=== PATIENT | male | born 1975 | race Hispanic/Latino ===

== ENCOUNTER 2022-09-02 00:54 | Emergency (ER) | payer OTHER ==
[~2022-09-02] VITALS: Ht 170.2 cm; Wt 144.7 kg
[2022-09-02 01:23] LABS: BASOPHILS % (AUTO) 0.5 % (0.0-5.0); EOSINOPHILS % (AUTO) 1.4 % (0.0-8.0); HEMATOCRIT 48.3 % (42-54); LYMPHOCYTES % (AUTO) 19.7 % (21.0-51.0); MEAN CORPUSCULAR HEMOGLOBIN 28.4 pg (27.0-33.0); MEAN CORPUSCULAR HGB CONC 33.3 g/dL (32.0-36.0); MEAN CORPUSCULAR VOLUME 85.3 fL (79-99); MONOCYTES % (AUTO) 5.6 % (3.0-13.0); NEUTROPHILS % (AUTO) 72.1 % (40.0-77.0); PLATELET COUNT (AUTO) 330 K/uL (130-400); RED BLOOD CELL COUNT(AUTO) 5.66 MIL/uL (4.50-6.20); RED CELL DISTRIBUTION WIDTH 13.7 % (11.0-15.5); WHITE BLOOD COUNT (AUTO) 14.6 K/uL (4.8-10.8)
[2022-09-02 01:26] LABS: APPEARANCE,URINE CLEAR (CLEAR); BILIRUBIN,URINE NEGATIVE (NEGATIVE); COLOR,URINE YELLOW (YELLOW); GLUCOSE, URINE (UA) NEGATIVE (NEGATIVE); KETONES,URINE NEGATIVE (NEGATIVE); LEUKOCYTE ESTERASE ,URINE NEGATIVE Leu/uL (NEGATIVE); NITRATE,URINE NEGATIVE (NEGATIVE); OCCULT BLOOD,URINE NEGATIVE (NEGATIVE); PH,URINE 5.5 (5.0-8.0); PROTEIN,URINE 30 mg/dL (NEGATIVE); UROBILINOGEN,URINE 0.2 mg/dL (0.2-1.0)
[2022-09-02 01:29] LABS: MUCUS,URINE MOD LPF (None Seen); RBC,URINE 0-1 /HPF (0-1)
[2022-09-02 01:30] LABS: CREATININE 0.9 mg/dL (0.5-1.5)
[2022-09-02] MEDS ORDERED: ONDANSETRON 4MG INJ IVP ONE ×2 (01:30→05:00)
[2022-09-02] MEDS ORDERED: FAMOTIDINE 20MG VIAL IV ONE (01:30)
[2022-09-02 01:34] LABS: ALBUMIN 4.2 g/dL (3.5-5.0); TOTAL PROTEIN, SERUM 9.2 g/dL (6.0-8.3)
[2022-09-02 02:07] LABS: INR 0.96 (0.85-1.15); PROTHROMBIN TIME 10.5 SEC (9.6-11.6)
[2022-09-02] MEDS ORDERED: LIDOCAINE HCL 2% VISCOUS 15 ML UDCUP PO ONE (04:30)
[2022-09-02] MEDS ORDERED: KETOROLAC 15MG/ML VIAL (15MG/ML) IV ONE (04:30)
[2022-09-02] MEDS ORDERED: MAG/ALUM/SIMETH 30 ML UDCUP PO ONE (04:30)
[2022-09-02] MEDS ORDERED: MORPHINE 4 MG SYG ONE (04:37)
[2022-09-02] MEDS ORDERED: MORPHINE 4 MG SYG IVP ONE (05:00)
[2022-09-02] MEDS ORDERED: BISA-189 PO (05:56)
[2022-09-02 06:03] VITALS: BP 157/88
== END 2022-09-02 06:18 | disposition home or self-care (01) ==
LOC: EDH 00:54
DX: 000.000 (principal); R10.12 Left upper quadrant pain; K59.00 Constipation, unspecified
CPT/HCPCS: 99285; 80053; 83690; 85025; 85610; 81001; 36415; 74021; 74176; 96374; 96375; 96376; J3490; J2405 ×2; J2270; J1885

== ENCOUNTER 2022-10-09 07:24 | Emergency (ER) | payer OTHER ==
[~2022-10-09] VITALS: Ht 167.6 cm; Wt 145.1 kg
[~2022-10-09 07:24] MED LIST: BISA-189 PO
[2022-10-09] MEDS ORDERED: PENICILLIN G BENZATHINE LA 1.2 MILUNITS/2 ML SYG IM ONE (09:30)
[2022-10-09] MEDS ORDERED: DEXAMETHASONE SOD PHOSPHATE 4 MG/ML 1ML VIAL IM ONE (09:30)
[2022-10-09] MEDS ORDERED: KETOROLAC 60 MG VIAL (30MG/ML) IM ONE (09:30)
[2022-10-09] MEDS ORDERED: PRED20TA3 PO (10:20)
[2022-10-09] MEDS ORDERED: IBUP-2077 PO (10:20)
[2022-10-09 10:27] VITALS: BP 149/99
== END 2022-10-09 10:28 | disposition home or self-care (01) ==
LOC: EDH 07:24
DX: J02.0 Streptococcal pharyngitis (principal); R03.0 Elevated blood-pressure reading, without diagnosis of hypertension; E66.01 Morbid (severe) obesity due to excess calories; Z68.43 Body mass index [BMI] 50.0-59.9, adult; Z79.899 Other long term (current) drug therapy; Z20.822 Contact with and (suspected) exposure to COVID-19
CPT/HCPCS: 99284; 87635; 87880; 87804 ×2; 96372; J0561; J1100; C9803; J1885

== ENCOUNTER 2025-04-27 23:24 | Emergency (ER) | payer SELFPAY ==
[~2025-04-27] VITALS: Ht 172.7 cm; Wt 153.8 kg
[~2025-04-27 23:24] MED LIST changes: +IBUP-2077 PO; +PRED20TA3 PO
[2025-04-27 23:46] LABS: APPEARANCE,URINE CLEAR (CLEAR); GLUCOSE, URINE (UA) NEGATIVE (NEGATIVE); LEUKOCYTE ESTERASE ,URINE NEGATIVE Leu/uL (NEGATIVE); NITRATE,URINE NEGATIVE (NEGATIVE); OCCULT BLOOD,URINE NEGATIVE (NEGATIVE)
[2025-04-27 23:47] LABS: ADD UA MICROSCOPIC NO
--- NOTE | 2025-04-27 23:57 | ERN ---
ED Note History of Present Illness Stated Complaint: ABDOMINAL PAIN Chief Complaint: Abdominal Pain Time Seen by MD: 23:32 Dictation: PATIENT IS A 49-YEAR-OLD MALE COMING IN WITH COMPLAINTS OF ABDOMINAL PAIN DISTENTION EPIGASTRIC FOR ONE MONTH. HE STATES HIS ABDOMEN FEELS VERY BLOATED. STATES HE HAS ALSO HAD SOME DARK STOOLS FOR THE LAST WEEK. FINALLY, STATES HE HAS NOT TAKEN HIS HIGH BLOOD PRESSURE MEDICATIONS OVER THE LAST WEEK BECAUSE IT MAKES HIM FEEL BAD. Allergies: Coded Allergies: No Known Drug Allergies (Unverified Allergy, Unknown, 09/02/22) Home Meds Active Scripts Prednisone (Prednisone) 20 Mg Tablet, 1 TAB PO AD for 2 Days, #2 TAB 0 Refills Prov:JODIE CHURCHILL MD 10/09/22 Ibuprofen (Ibuprofen 800 mg Tab) 800 Mg Tab, 800 MG PO Q6H PRN for PAIN, #30 TAB Prov:JODIE CHURCHILL MD 10/09/22 Bisacodyl (Dulcolax 5Mg Tab) 5 Mg Tablet.dr, 5 MG PO BID for 3 Days, #9 TAB Prov:HAYDER ROBLES MD 09/02/22 Past Medical History Past Medical History: Hypertension Surgical History: Appendectomy, Other Surgical History Other: NOSE Social History: Negative RN Note Reviewed/Agreed w/PFSH: Yes Review of System Dictation CONSTITUTIONAL: NEGATIVE EXCEPT FOR HPI HEAD/FACE: NEGATIVE EXCEPT FOR HPI EENT: NEGATIVE EXCEPT FOR HPI RESPIRATORY: NEGATIVE EXCEPT FOR HPI GASTROINTESTINAL/ABDOMINAL: NEGATIVE EXCEPT FOR HPI ABDOMINAL BLOATING DISTENTION WITH A EPIGASTRIC PAIN AND MELENA STOOLS GENITOURINARY: NEGATIVE EXCEPT FOR HPI MUSCULOSKELETAL: NEGATIVE EXCEPT FOR HPI INTEGUMENTARY: NEGATIVE EXCEPT FOR HPI NEUROLOGICAL/PSYCH: NEGATIVE EXCEPT FOR HPI HEMATOLOGIC/LYMPHATIC: NEGATIVE EXCEPT FOR HPI ALL SYSTEMS NEGATIVE, EXCEPT NOTED ABOVE. 13 POINT REVIEW OF SYSTEMS ASSESSED AND ALL NEGATIVE EXCEPT FOR ABOVE. Initial Vital Sign VS Vital Signs Date Time Temp Pulse Resp B/P (MAP) Pulse Ox O2 Delivery O2 Flow Rate FiO2 04/27/25 23:26 97.5 85 16 174/103 99 Room Air 0 04/27/25 23:50 21 Physical Exam Dictation VITAL SIGNS REVIEWED GENERAL APPEARANCE: ALERT, ORIENTED X 3, N MILD ACUTE DISTRESS, WELL DEVELOPED, NOURISHED. MORBID OBESITY HEAD AND FACE: NON-TRAUMATIC. EYES: PERRL, PINK CONJUNCTIVAS, EYELID NO TRAUMA, ANTERIOR CHAMBER WITH ARCUS SENILIS. EARS: PINNAS INTACT AND NO SIGNS OF TRAUMA OR ERYTHEMA EAR CANALS CLEAR AND NO DISCHARGE TM NO ERYTHEMA NOSE: NO DISCHARGE, NO BLEEDING. OROPHARYNX: MOUTH NORMAL, TONGUE PINK, PHARYNX CLEAR,NO ERYTHEMA, TONSILS NO EXUDATES, NO ABSCESSES NOTED, MUCOUS MEMBRANE MOIST NECK: SUPPLE, NON-TENDER, NO THYROMEGALY, NO MASSES, NO JVD, NO BRUITS BREAST:DEFERRED CHEST:NO TENDERNESS, NO CREPITUS, NO PARADOXICAL MOVEMENT, NO RETRACTIONS LUNGS:CLEAR, WELL-VENTILATED, SYMMETRIC, NO RALES, NO WHEEZING, NO RHONCHI, NO STRIDOR, GOOD BREATH SOUNDS BILATERALLY HEART: REGULAR RATE, REGULAR RHYTHM, NO MURMUR, NO GALLOPS VASCULAR: NO PERIPHERAL EDEMA, ABDOMEN: SOFT, POSITIVE BOWEL SOUNDS, NONDISTENDED, NO GUARDING, NONTENDER, NO REBOUND, NO MASSES NO HEPATOMEGALY, NO SPLENOMEGALY, NO MARLOW'S SIGN, NO HERNIAS. RECTAL: DEFERRED GENITAL: DEFERRED NEUROLOGICAL: NORMAL SPEECH, MOTOR FUNCTION INTACT, SENSORY FUNCTION INTACT MUSCULOSKELETAL: NECK NONTENDER, FULL RANGE OF MOTION, BACK NONTENDER, FULL RANGE OF MOTION, EXTREMITIES: NONTENDER, FULL RANGE OF MOTION SKIN: COLOR PINK, DRY, NO TURGOR, NO RASH, NO LACERATIONS, NO ABRASIONS, NO CONTUSIONS. LYMPHATIC: DEFERRED Results (Laboratory/Radiology) Laboratory/Radiology Laboratory Tests Test 04/27/25 23:38 04/27/25 23:54 Urine Color LIGHT-YELLOW (YELLOW) Urine Appearance CLEAR (CLEAR) Urine pH 5.5 (5.0-8.0) Urine Specific [place] 1.026 (1.001-1.031) Urine Protein NEGATIVE mg/dL (NEGATIVE) Urine Glucose (UA) NEGATIVE mg/dL (NEGATIVE) Urine Ketones NEGATIVE mg/dL (NEGATIVE) Urine Occult Blood NEGATIVE (NEGATIVE) Urine Nitrate NEGATIVE (NEGATIVE) Urine Bilirubin NEGATIVE mg/dL (NEGATIVE) Urine Urobilinogen 0.2 mg/dL (0.2-1.0) Urine Leukocyte Esterase NEGATIVE [place]/uL White Blood Count 10.5 K/uL (4.8-10.8) Red Blood Count 4.94 MIL/uL (4.50-6.20) Hemoglobin 14.2 g/dL (14.0-18.0) Hematocrit 43.7 % (42-54) Mean Corpuscular Volume 88.5 fL (79-99) Mean Corpuscular Hemoglobin 28.7 pg (27.0-33.0) Mean Corpuscular Hemoglobin Concent 32.5 g/dL (32.0-36.0) Red Cell Distribution Width 13.5 % (11.0-15.5) Platelet Count 304 K/uL (130-400) Mean Platelet Volume 9.1 fL (7.5-10.5) Immature Granulocyte % (Auto) 0.5 % (0-1) Neutrophils (%) (Auto) 55.7 % (40.0-77.0) Lymphocytes (%) (Auto) 32.0 % (21.0-51.0) Monocytes (%) (Auto) 9.0 % (3.0-13.0) Eosinophils (%) (Auto) 2.0 % (0.0-8.0) Basophils (%) (Auto) 0.8 % (0.0-5.0) Neutrophils # (Auto) 5.9 K/uL (1.8-7.7) Lymphocytes # (Auto) 3.4 K/uL (1.0-4.8) Monocytes # (Auto) 0.9 K/uL (0.1-1.0) Eosinophils # (Auto) 0.21 K/uL (0.00-0.70) Basophils # (Auto) 0.08 K/uL (0.00-0.20) Absolute Immature Granulocyte (auto 0.05 K/uL (0-1) Nucleated Red Blood Cells 0.0 % (0.0-0.19) Sodium Level 139 mmol/L (136-145) Potassium Level 3.8 mmol/L (3.5-5.1) Chloride Level 102 mmol/L (101-111) Carbon Dioxide Level 29 mmol/L (21-32) Blood Urea Nitrogen 11 mg/dL (7-18) Creatinine 0.8 mg/dL (0.5-1.3) Glomerular Filtration Rate Calc 110 mL/min (>90) Random Glucose 91 mg/dL (70-105) Total Calcium 9.3 mg/dL (8.5-10.1) Lipase 32 U/L (16-77) Labs Reviewed?: Yes ED Course ED Course Orders Procedure Category Date Status Time Cbc With Differential LAB 04/27/25 Complete 23:32 Urinalysis Profile LAB 04/27/25 Complete 23:32 Occult Blood Stool LAB 04/27/25 Logged Single Only 23:32 Famotidine 20mg Vial PHA 04/28/25 Complete (Pepcid 20mg Vial) 00:00 Lipase LAB 04/27/25 Complete 23:32 Basic Metabolic Panel LAB 04/27/25 Complete 23:32 Lidocaine Hcl 2% PHA 04/28/25 Complete Viscous (Lidocaine Hcl 00:30 Dicyclomine Hcl PHA 04/28/25 Complete (Bentyl 10mg/5ml 00:30 Mag/Alum/Simeth 30ml PHA 04/28/25 Complete (Maalox Plus 30ml) 00:30 Lactated Ringers PHA 04/28/25 Complete 1000ml (Lactated 01:18 Orphenadrine Citrate PHA 04/28/25 Complete (Norflex) 01:30 Ketorolac PHA 04/28/25 Complete Tromethamine 30mg/Ml 01:30 Abd 1vw RAD 04/28/25 Taken 01:18 Current Medications Medications (Trade) Dose Ordered Sig/Ev Route PRN Reason Start Time Stop Time Status Last Admin Dose Admin Al Hydroxide/Mg Hydroxide (MAALox PLUS 30ML) 30 ml ONCE ONCE PO 04/28/25 00:30 04/28/25 00:31 DC 04/28/25 00:35 Dicyclomine HCl (Bentyl 10mg/5ml Syrup) 10 mg ONCE ONCE PO 04/28/25 00:30 04/28/25 00:31 DC 04/28/25 00:35 Famotidine (Pepcid 20mg Vial) 20 mg ONCE ONCE IV 04/28/25 00:00 04/28/25 00:01 DC 04/28/25 00:35 Ketorolac Tromethamine (toRADol) 30 mg ONCE ONCE IVP 04/28/25 01:30 04/28/25 01:31 DC 04/28/25 01:38 Lactated Ringer's (Lactated Ringers 1000ml) 1,000 ml BOLUS STAT IV 04/28/25 01:18 04/28/25 01:21 DC 04/28/25 01:39 Lidocaine HCl (Lidocaine HCl 2% Viscous) 10 ml ONCE ONCE PO 04/28/25 00:30 04/28/25 00:31 DC 04/28/25 00:36 Orphenadrine Citrate (Norflex) 60 mg ONCE ONCE IVP 04/28/25 01:30 04/28/25 01:31 DC 04/28/25 01:38 Vital Signs Date Time Temp Pulse Resp B/P (MAP) Pulse Ox O2 Delivery O2 Flow Rate FiO2 04/27/25 23:50 98.2 78 17 149/91 98 Room Air* 0 21 04/27/25 23:26 97.5 85 16 174/103 99 Room Air 0 Medical Decision Making MDM Doubt patient's black stools mean that he is bleeding. Black stools can be caused by many things. The patient's laboratory analysis shows a normal CBC a normal chemistry panel and a normal urine analysis. Patient's subxiphoid pain what away with the famotidine and a GI cocktail. KUB shows impaction. Patient's pain now is limited just to his left lower quadrant. He is non peritoneal. I will not CT scan his abdomen it is not indicated with his exam in his normal labs. His blood pressure now is systolic 140. I have recommended to the patient that he restart his antacid therapy. And he started taking MiraLax to help with his constipation. DX & DISP Disposition: Discharge Departure Impression: Primary Impression: Abdominal pain Additional Impressions: Morbid obesity, Constipation Condition: Stable Additional Instructions: I think that your abdominal pain in the subxiphoid region is from GERD gastroesophageal reflex. I asked her if you are taking antacid tablets and you said you were but then you stopped I strongly recommend you continue those. Please follow-up with your primary care physician you may need to use both a proton pump inhibitor as well as a nightly H2 kenneth. The other complaints you have I think are related to constipation. Are x-ray of your stomach does show impaction. I recommend you do MiraLax every night to help make your bowel movements regular. If you find that you can not go you can use magnesium citrate that will relieve the obstruction and empty her bowels very well. Both of these products are available [id number] at any pharmacy. You need to lose weight the heavy weight is causing your back pain. It is also causing your acid reflux. I also would not be surprised to find that it is disturbing her sleep. Please go to your primary care physician and discuss a plan so that you can lose weight. Referrals: BELLA ROGEL (PCP) KANDACE TONEY NP Apr 27, 2025 23:57 LOUIE FOUNTAIN MD Apr 28, 2025 02:21
[2025-04-28 00:02] LABS: IMMATURE GRANULOCYTE ABSOLUTE 0.05 K/uL (0-1); NUCLEATED RED BLOOD CELLS 0.0 % (0.0-0.19); PLATELET COUNT (AUTO) 304 K/uL (130-400); RED BLOOD CELL COUNT(AUTO) 4.94 MIL/uL (4.50-6.20); RED CELL DISTRIBUTION WIDTH 13.5 % (11.0-15.5); WHITE BLOOD COUNT (AUTO) 10.5 K/uL (4.8-10.8)
[2025-04-28 00:12] LABS: CREATININE 0.8 mg/dL (0.5-1.3); GLOMERULAR FILTR. RATE CALC 110.0 mL/min (>90); GLUCOSE,RANDOM 91.0 mg/dL (70-105); SODIUM SERUM 139.0 mmol/L (136-145); UREA NITROGEN, BLOOD 11.0 mg/dL (7-18)
[2025-04-28] MEDS: MAG/ALUM/SIMETH 30 ML UDCUP PO ONE (00:35)
[2025-04-28] MEDS: FAMOTIDINE 20MG VIAL IV ONE (00:35)
[2025-04-28] MEDS: DICYCLOMINE HCL 10 MG/5 ML ML PO ONE (00:35)
[2025-04-28] MEDS: LIDOCAINE HCL 2% VISCOUS 15 ML UDCUP PO ONE (00:36)
[2025-04-28] MEDS: ORPHENADRINE 60MG/2ML IVP ONE (01:38)
[2025-04-28] MEDS: LACTATED RINGERS 1000ML IV STA (01:39)
[2025-04-28 02:23] VITALS: BP 147/86; PULSE 71; RESP 16; TEMP 98.2; O2SAT 96
--- NOTE | 2025-04-28 02:48 | HMCIMG ---
EXAM: CR Abdomen, 2 views CLINICAL HISTORY: Constipation. COMPARISON: Radiograph of the abdomen dated 09/02/2022. FINDINGS: Nonobstructed nonspecific bowel gas pattern. A component of mild constipation is present in the colon. No free air is evident. No abnormal calcification. No aggressive appearing osseous lesion. IMPRESSION: No acute process. A component of mild constipation is present in the colon. Compared to the prior study, there is no significant interval change. /[place]
== END 2025-04-28 02:32 | disposition home or self-care (01) ==
LOC: EDH 23:24
DX: R14.0 Abdominal distension (gaseous) (principal); E66.01 Morbid (severe) obesity due to excess calories; K59.00 Constipation, unspecified; I10 Essential (primary) hypertension; Z90.49 Acquired absence of other specified parts of digestive tract
CPT/HCPCS: 99285; 80048; 83690; 85025; 81003; 36415; 96374; 96375; 96361; 74018; J1885; J7120; J3490; J2360